=== PATIENT | female | born 1990 | race Caucasian/White ===

== ENCOUNTER 2018-09-22 10:40 | Emergency (ER) | payer OTHER ==
[~2018-09-22] VITALS: Ht 160 cm; Wt 93.8 kg
[2018-09-22 10:43] VITALS: BP 129/68; PULSE 63; RESP 18; Ht 160 cm; Wt 93.8 kg
[2018-09-22] MEDS ORDERED: ACET500C5 PO (12:57)
[2018-09-22] MEDS ORDERED: CEPH-443 PO (12:57)
--- NOTE | 2018-10-07 14:09 | ERD ---
ER Documentation Chief Complaint Chief Complaint vaginal bleeding/"spotting" x 2 days denies pain 6 weeks HPI 28-year-old female patient with no significant past medical history presents to ED complaining of vaginal spotting that started 2 days ago. Reports that she is unsure who her PAINTER is. Discussed her pain is achy and cramp-like and rates it a 6 out of 10. Denies any chest pain, shortness of breath, nausea, vomiting, diarrhea, abdominal pain, dysuria neck stiffness. ROS All systems reviewed and are negative except as per history of present illness. Medications Home Meds Active Scripts Cephalexin* (Keflex*) 500 Mg Capsule, 500 MG PO QID for 7 Days, CAP Prov:MICHAEL MONAHAN PA-C 09/22/18 Acetaminophen* (Tylophen*) 500 Mg Capsule, 1 CAP PO Q6H PRN for PAIN AND OR ELEVATED TEMP, #20 CAP Prov:MICHAEL MONAHAN PA-C 09/22/18 PMhx/Soc Hx Alcohol Use: No Hx Substance Use: No Hx Tobacco Use: No FmHx Family History: No diabetes, No coronary disease Physical Exam Vitals Temp 97.4 Pulse 63 Resp 18 SBP 129 DBP 68 Pulse 99 Physical Exam Const: Qwy-ina-ponuojkmh, well-nourished. In no acute distress. Head: Atraumatic, normocephalic Eyes: Normal Conjunctiva without injection. No purulent discharge. ENT: Normal external ear, nose. Moist oropharynx without tonsillar exudates. Non-erythematous pharynx. Uvula midline. No drooling. No trismus. Neck: No cervical midline tenderness. Full range of motion. No meningismus. No cervical lymphadenopathy. No JVD. Resp: Clear to auscultation bilaterally. No wheezing, rhonchi, rales, or crackles. No accessory muscle use. No retractions. Cardio: Regular rate and rhythm. No murmurs, rubs or gallops. Abd: Soft, nontender, non distended. Normal bowel sounds. No palpable masses. No rebound tenderness. No guarding. Negative McBurney's point. Negative psoas sign. Negative obturator sign. Skin: No petechiae or rashes Back: No midline tenderness. No CVA tenderness. Ext: No cyanosis, or edema. Neur: Awake and alert. Normal gait. Normal coordination. Psych: Normal Mood and Affect Results 24 hrs Laboratory Tests Test 09/22/18 11:04 09/22/18 11:06 White Blood Count 10.3 10^3/ul Red Blood Count 4.69 10^6/ul Hemoglobin 13.7 g/dl Hematocrit 40.8 % Mean Corpuscular Volume 87.0 fl Mean Corpuscular Hemoglobin 29.2 pg Mean Corpuscular Hemoglobin Concent 33.6 g/dl Red Cell Distribution Width 13.3 % Platelet Count 283 10^3/UL Mean Platelet Volume 10.5 fl Immature Granulocytes % 0.200 % Neutrophils % 76.4 % Lymphocytes % 18.5 % Monocytes % 4.0 % Eosinophils % 0.6 % Basophils % 0.3 % Nucleated Red Blood Cells % 0.0 /100WBC Immature Granulocytes # 0.020 10^3/ul Neutrophils # 7.9 10^3/ul Lymphocytes # 1.9 10^3/ul Monocytes # 0.4 10^3/ul Eosinophils # 0.1 10^3/ul Basophils # 0.0 10^3/ul Nucleated Red Blood Cells # 0.0 10^3/ul Beta HCG, Quantitative 438971.0 mIU/ml Urine Color YELLOW Urine Clarity CLOUDY Urine pH 5.0 Urine Specific [place] 1.016 Urine Ketones NEGATIVE mg/dL Urine Nitrite NEGATIVE mg/dL Urine Bilirubin NEGATIVE mg/dL Urine Urobilinogen NEGATIVE mg/dL Urine Leukocyte Esterase 3+ Lea/ul Urine Microscopic RBC 11 /HPF Urine Microscopic WBC 34 /HPF Urine Squamous Epithelial Cells MODERATE /HPF Urine Bacteria FEW /HPF Urine Mucus FEW /HPF Urine Yeast (Budding) FEW /HPF Urine Hemoglobin 3+ mg/dL Urine Glucose NEGATIVE mg/dL Urine Total Protein NEGATIVE mg/dl Procedures/MDM 28-year-old female patient resents to ED complaining of slight vaginal spotting in her . Patient is afebrile and nontoxic-appearing. An ultrasound, beta-hCG, CBC, type and RH, UA was ordered to evaluate patient. CBC: No evidence of severe infection or anemia Urine: No elevation in nitrites, 3+ leukocyte esterase, hematuria. Rh: A+ No indication for Rhogam at this time. beta Hc IMPRESSION: 1. Single live intrauterine with an estimated gestational age of 8 weeks 0 days by ultrasound criteria and an estimated date of delivery of 05/04/2019. 2. 7.0 x 4.2 x 5.6 cm septated left paraovarian cyst. She was noted to have a single IUP, 8 weeks. Was also noted to have a urinary tract infection. Patient has a 7 cm this, this patient was discussed with the nurse practitioner of Dr. Guerra and was Meenakshi, stated that patient can be managed on outpatient basis. Does not have any current abdominal pain. Pat ient's bleeding symptoms have stabilized while in the department. Low suspicion for symptomatic anemia, ectopic , sepsis, PID, appendicitis, ovarian torsion, tubo-ovarian abscess, surgical abdomen, or other emergent conditions. Patient was educated that there is a risk for threatened . Discharge medications: Tylenol, Keflex Follow up with primary care physician in 1-2 days. Instructed patient to return to the ED sooner for any worsening symptoms. Patient's questions were answered. Patient is hemodynamically stable. Patient understood and agreed with discharge plan. Patient discharged stable. Disclaimer: Inadvertent spelling and grammatical errors are likely due to EHR/dictation software use and do not reflect on the overall quality of patient care. Also, please note that the electronic time recorded on this note does not necessarily reflect the actual time of the patient encounter. Departure Diagnosis: Primary Impression: Vaginal bleeding in patient at less than 20 weeks ges... Condition: Stable Patient Instructions: What Are Ovarian Cysts?, Urinary Tract Infections in Women, Bleeding During Early Referrals: [facility] YOU HAVE RECEIVED A MEDICAL SCREENING EXAM AND THE RESULTS INDICATE THAT YOU DO NOT HAVE A CONDITION THAT REQUIRES URGENT TREATMENT IN THE EMERGENCY DEPARTMENT. FURTHER EVALUATION AND TREATMENT OF YOUR CONDITION CAN WAIT UNTIL YOU ARE SEEN IN YOUR DOCTORS OFFICE WITHIN THE NEXT 1-2 DAYS. IT IS YOUR RESPONSIBILITY TO MAKE AN APPOINTMENT FOR FOLOW-UP CARE. IF YOU HAVE A PRIMARY DOCTOR --you should call your primary doctor and schedule an appointment IF YOU DO NOT HAVE A PRIMARY DOCTOR YOU CAN CALL OUR PHYSICIAN REFERRAL HOTLINE AT IF YOU CAN NOT AFFORD TO SEE A PHYSICIAN YOU CAN CHOSE FROM THE FOLLOWING [facility] [address] [facility]. [facility] [address] [facility]. [facility] [address] [facility]. [facility] [address] [facility]. [facility] [address] [facility]. [facility] [address] [facility]. [facility] YOU HAVE RECEIVED A MEDICAL SCREENING EXAM AND THE RESULTS INDICATE THAT YOU DO NOT HAVE A CONDITION THAT REQUIRES URGENT TREATMENT IN THE EMERGENCY DEPARTMENT. FURTHER EVALUATION AND TREATMENT OF YOUR CONDITION CAN WAIT UNTIL YOU ARE SEEN IN YOUR DOCTORS OFFICE WITHIN THE NEXT 1-2 DAYS. IT IS YOUR RESPONSIBILITY TO MAKE AN APPOINTMENT FOR FOLOW-UP CARE. IF YOU HAVE A PRIMARY DOCTOR --you should call your primary doctor and schedule and appointment IF YOU DO NOT HAVE A PRIMARY DOCTOR YOU CAN CALL OUR PHYSICIAN REFERRAL HOTLINE AT . IF YOU CAN NOT AFFORD TO SEE A PHYSICIAN YOU CAN CHOSE FROM THE FOLLOWING [facility] INSTITUTIONS: [facility] [address] [place] [address] [facility] [address] [place] [address] [facility] [address] [place], [place] [address] URGENT CARE/SPECIALTIES [place] [address] [facility] [address] [place], [place] [phone] OFFICE FAX JOSE HARMONNICA [address] [place], [place] [phone] [place] [address] [place], [place] [phone] CORY LEUNG [address] [facility], [address] [phone] AURELIO LOPEZ [address] [place], [place] [phone] [facility] [address] [place], [place] [id number] [address] [facility] [id number] - DR YOUNG, ARGELIA [address], [facility] [phone] DIAZ, OSWALD [address] [facility]. [address], [facility] [phone] [facility] [address] [place] [address] [facility] Hours: 8:00 am - 5:00 pm Additional Instructions: Call your PAINTER TOMORROW for an appointment during the next 2-3 days for further care and treatment.See the doctor sooner or return here if your condition worsens before your appointment time. MICHAEL MONAHAN PA-C October 07, 2018 14:09
== END 2018-09-22 14:41 | disposition home or self-care (01) ==
LOC: FTE 10:40
DX: O20.9 Hemorrhage in early pregnancy, unspecified (principal); Z3A.08 8 weeks gestation of pregnancy
CPT/HCPCS: 36415; 76801; 76817; 81001; 84702; 85025; 86900; 86901